=== PATIENT | male | born 1945 | race Caucasian/White ===

== ENCOUNTER 2023-06-12 14:38 | Emergency (ER) | payer MEDICARE, SELFPAY ==
[2023-06-12 14:49] VITALS: BP 145/83
[2023-06-12 15:09] LABS: % Basophils 0.9 % (0-2); % Eosinophils 2.5 % (0-6); % Immature Granulocytes 0.3 % (0-0.5); % Lymphocytes 23.3 % (20.5-51.1); % Monocytes 11.3 % (1.7-9.3); % Neutrophils 61.7 % (42.2-75.2); Absolute Basophils 0.1 10^3/uL (0-0.2); Absolute Eosinophils 0.2 10^3/uL (0-0.7); Absolute Lymphocytes 1.6 10^3/uL (1.2-3.4); Absolute Monocytes 0.8 10^3/uL (0.1-0.6); Absolute Neutrophils 4.2 10^3/uL (1.4-6.5); Hemoglobin 14.4 g/dL (13.0-18.0); Mean Corp Hgb Conc. 34.3 g/dL (33.0-37.0); Mean Corpuscular Hgb 30.3 pg (27.0-31.0); Mean Corpuscular Volume 88.2 fL (80.0-94.0); Mean Platelet Volume 9.5 fL (7.4-10.4); Nucleated Red Blood Cells % 0 % (-); Platelet Count 203 10^3/uL (130-400); Red Blood Cell Count 4.76 10^6/uL (4.70-6.10); Red Cell Dist. Width 13.4 % (11.5-14.5); White Blood Cell Count 6.8 10^3/uL (4.8-10.8)
[2023-06-12 15:20] LABS: ALT (SGPT) 57 U/L (0-50); AST (SGOT) 52 U/L (17-59); Albumin 4.3 g/dl (3.5-5.0); Alkaline Phosphatase 55 U/L (38-126); Blood Urea Nitrogen 24 mg/dl (9-20); Calcium 9.5 mg/dl (8.4-10.2); Carbon Dioxide 27 mmol/L (22-30); Chloride 106 mmol/L (98-107); Glucose 95 mg/dl (70-99); Sodium 136 mmol/L (135-145); Total Bilirubin 1.1 mg/dl (0.2-1.3); Total Protein 6.9 g/dl (6.3-8.2); eGFR > 60.00
[2023-06-12 15:21] LABS: Potassium 4.3 mmol/L (3.5-5.1)
[2023-06-12 15:50] LABS: Urine Albumin Negative (Neg - Trace); Urine Bilirubin Negative (Negative); Urine Character Clear (Clear); Urine Color Yellow; Urine Glucose Negative (Negative); Urine Ketone 1+ (Negative); Urine Leukocyte Trace (Negative); Urine Nitrite Negative (Negative); Urine Occult Blood Trace (Negative); Urine Urobilinogen Negative (Neg - 1+)
[2023-06-12 16:00] LABS: Urine Red Blood Cell 0-2 /HPF (0-2); Urine White Cell 0-2 /HPF (0-5)
[2023-06-12 17:21] VITALS: BP 147/77
--- NOTE | 2023-06-12 17:59 | ED.GENMED ---
History of Present Illness
General
Chief Complaint: Change in Mental Status
Source: patient and family
Exam Limitations: clinical condition and dementia
Time Seen by Provider: 06/12/23 17:10
Nursing documentation reviewed up to this point in time: agreed with
Travel History
Have you had any contact with someone who has COVID-19?: No
Do you have any symptoms of coronavirus? Fever > 100 degrees, chills, cough, shortness of breath, sore throat, loss of taste or smell, muscle aches, or headache?: No
History of Present Illness
History of Present Illness:
77-year-old male with a diagnosis of Alzheimer's within the last 6 months presents for semisubacute 2-week increase in anxiety and paranoid delusions, as well as visual hallucinations. Patient apparently was having some sundowning issues and
suspicious of his neighbors and about 2 weeks ago his son spoke with patient's primary Dr. Juarez regarding starting medications. They chose Depakote for 500 mg once a day. The patient's sons alternate days where they go and visit their dad. He
otherwise lives alone. He is apprehensive about medications as it is so they only put 3 pills in his pill dispenser initially and despite reluctance he did agree to take the medication once a day. Then one of the sons had put 1 pill in each of the
7-day pill dispenser's and the next day came back and 5 are missing. He says the patient was acutely anxious, paranoid, seeing people who are not there and the son suspected that the patient could have taken 5 tablets. However the patient was very
apprehensive about the medication as it was so he is not sure. Ultimately the Depakote level was not checked and the stopped the Depakote that was about 2 weeks ago. Ever since then he still having episodes of agitation especially at night,
paranoid delusions thinking that the neighbors are coming into his house and some visual hallucinations and so the sons have been pursuing potential long-term facilities versus home care versus trying to keep him at home which they ultimately prefer
to do. And they were basically referred here to get an evaluation to get medication that may help him with his anxiety and paranoid delusions.
They have not reached out to Dr. Juarez but came here. He has not had any recent head injury, fever or chills, urinary symptoms, vomiting.
Past History
Past History
ED Past Medical History: Other (skin CA, Alzheimer's)
Social History
Tobacco: Non-smoker
Alcohol: None
Drug: None
Personal: Single
Living: alone
Review of Systems
Review of Systems
Allergies reviewed?: Yes
Unable to obtain full review of systems at this time due to: dementia
All Other Systems: Not applicable
Phy Exam
Physical Exam
Physical Exam:
GENERAL: Alert , in no apparent distress
HEAD: NCAT
EYE: pupils equal and reactive, no nystagmus, minimal photophobia
NECK: Supple,full rom, nontender
ENT: o/p clr, mmm.
CARDIAC: Regular rate and rhythm . no edema
LUNGS: Clear breath sounds bilaterally, no acute respiratory distress, no wheezes/rales/rhonchi
ABDOMEN: Soft, without focal tenderness, no r/g, no cvat
NEUROLOGICAL: Alert and oriented x 2, cn intact, no facial asymmetry, 5/5 strength in UE/LE, sensation intact, romberg neg, ambulates without assistance, neg pronator drift
SKIN: Warm and dry, skin intact.
MUSCULOSKELETAL: No edema, well perfused.
PSYCH: Normal and appropriate interaction.
Course
Orders/Labs/Results
Orders:
Orders
06/12/23 14:57
Complete Blood Count/With Diff Urgent
Comprehensive Metabolic Panel Urgent
06/12/23 15:38
Urinalysis Reflex To Culture Urgent
Date Specimen was Collected: 06/12/23
Time Specimen was Collected: 14:53
Urine Microscopic Reflex Cult Urgent
06/12/23 18:15
CT Head W/o Iv Contrast Urgent
Comment:
Reason For Exam: agitation,, confusion
06/12/23 19:02
Electrocardiogram (*1) Urgent
Reason for Study: QTc Monitoring
EKG- Treatment ONCE
06/12/23 19:28
Risperidone [Risperdal] 1 mg PO NOW STA
Abnormal Lab Results
06/12/23 06/12/23
14:57 15:38
Absolute Monos (auto) 0.8 H 10^3/uL
(0.1-0.6)
Monocytes % 11.3 H %
(1.7-9.3)
BUN 24 H mg/dl
(9-20)
ALT 57 H U/L
(0-50)
Urine Ketones 1+ A
(Negative)
Ur Occult Blood Reflex Trace A
(Negative)
Leukocyte Esterase Rfl Trace A
(Negative)
06/12/23 14:57
06/12/23 14:57
Vital Signs
Initial and Last Documented VS:
Initial Vital Signs
Temp Pulse Resp BP Pulse Ox
97.5 F 63 18 145/83 99
06/12/23 14:49 06/12/23 14:49 06/12/23 14:49 06/12/23 14:49 06/12/23 14:49
Last Documented Vital Signs
Temp Pulse Resp BP Pulse Ox
97.5 F 66 17 156/87 97
06/12/23 14:49 06/12/23 18:28 06/12/23 18:28 06/12/23 19:30 06/12/23 17:45
MDM/Problems Addressed
Differential Diagnosis Includes:
dementia, agitation, anxiety, hallucinations, metabolic conditions, uti, brain tumor
MDM/Problems Addressed:
77 y/o M with recent diangosis of dementia in the past 6 mo
lives alone and family visits daily
has had weeks of progressive anxiety, paranoia, delusion, hallucinations
tried depakote but then either took too many at once or threw them out and was having more hallucinations so stopped it 2 weeks ago
family here requesting another aternative medication to help with hallucinations
no fever, chills
they realize that pt is alone and with his dementia could really be at risk for harm because of his confusion at times
but they are waiting to keep him home as much as possible
he seems to escalate at night
they did not reach out to PCP again since 2 weeks ago with the depakote incident
they have looked into home care as well as NH and are not ready to put him in a facility and he does no wish to go
they are aware of risk of taking him home
neuro intact
a&ox 2 (doesn't know time) but otherwise has been appropriate here telling me about how he likes to garden
no visualized internal stimuli response
no psychosis or agitaion here
labs are unchanged, bun slightly elevated, ua mild ketones otherwise neg
head ct neg
d/w pt's pcp who requested either seroquel or risperdone
pt's DIL is a [employer] and said risperdone
qtc is 440s so ok
will start 1 mg QHS and pt needs f/u outpatient next week
aware to return if worse.
*Critical Care Note
Total Time (30-74mins, 75-104mins- exclusive of procedures): Not Applicable
ED Attending Note
-
Portions of this chart may have been created with voice recognition software.� Occasional wrong word or��sound alike� substitutions may have occurred due to the inherent limitations of voice recognition software.
Discharge Plan
Departure
Patient Disposition: Home (Routine Discharge)
Date of Disposition: 06/12/23
Time of Disposition: 19:25
Patient with high blood pressure during this ER visit?: No
Condition: Fair
Covid-19: Not Applicable
Discharge Problem:
Agitation due to dementia
Instructions: Dementia (DC)
Prescriptions:
New
risperidone [Risperdal] 1 mg tablet
1 mg PO HS Qty: 20 0RF
Referrals:
Alejandro Juarez MD [Family Provider] - Follow up in 5-7 days
Activity Restrictions/Additional Instructions:
THE WORK UP HERE DOES NOT SHOW ANY ACUTE CAUSES FOR THE AGITATION
WE SPOKE WITH DR. JUAREZ WHO RECOMMENDED RISPERDONE 1 MG AT NIGHT
FOLLOW UP WITH HIM NEXT WEEK
MONITOR FOR SIDE EFFECTS: LOW BLOOD PRESSURE WITH STANDING (LIGHTHEADEDNESS), SEDATION, EXRA PYRAMIDAL SYMPTOMS (TONGUE MOVEMENTS, TICKS)
THIS IS A LOW DOSE SO HOPEFULLY WILL NOT CAUSE THESE SIDE EFFECTS
RETURN FOR ANY CONCERNS
Interventions
Interventions:
*Risk Screen - Suicide Last Done: 06/12/23 17:42
*General Assessment Last Done: 06/12/23 17:42
*Neglect/Abuse Screening Last Done: 06/12/23 17:42
*ED COVID-19 Vaccine History Last Done: 06/12/23 17:42
*Nursing Disposition Last Done: 06/12/23 19:40
ED- Pulmonary Assessment Last Done: 06/12/23 19:39
ED-Psychological Assessment Last Done: 06/12/23 19:40
ED- Neurological Assessment Last Done: 06/12/23 18:02
ED- Cardiac Assessment Last Done: 06/12/23 19:39
ED Swallowing Screen Last Done: 06/12/23 17:50
Discharge Date and Time
Discharge Date/Time: 06/12/23 19:40
Print Language: MAURITIAN
[2023-06-12 18:00] VITALS: BP 175/95
[2023-06-12 19:28] VITALS: BP 166/87
[2023-06-12 19:30] VITALS: BP 156/87
[2023-06-12] MEDS: RISPERDAL 1 MG PO (19:33)
== END 2023-06-12 19:40 | disposition home or self-care (01) ==
LOC: EMR 14:38
PROVIDERS: Emergency Medicine; EMERGENCY PHYSICIAN Emergency Medicine; FAMILY PHYSICIAN Family Medicine
DX: F41.9 Anxiety disorder, unspecified (principal); F02.811 Dementia in other diseases classified elsewhere, unspecified severity, with agitation; F02.84 Dementia in other diseases classified elsewhere, unspecified severity, with anxiety; F02.82 Dementia in other diseases classified elsewhere, unspecified severity, with psychotic disturbance; Z60.2 Problems related to living alone; Z79.899 Other long term (current) drug therapy
CPT/HCPCS: 99284; 70450; 80053; 81003; 81015; 85025; 93005